=== PATIENT | male | born 1980 | race Hispanic/Latino ===

== ENCOUNTER → 2021-05-17 | Day surgery (SDC) | payer OTHER ==
[2021-05-08 13:25] LABS: ANION GAP 16.2 mmol/L (8-16); CALCIUM 9.9 mg/dL (8.4-10.2); CREATININE, SERUM 0.96 mg/dL (0.72-1.25); POTASSIUM 4.2 mmol/L (3.5-5.1)
[2021-05-16 08:40] LABS: ANION GAP 19.8 mmol/L (8-16); CALCIUM 9.4 mg/dL (8.4-10.2); CREATININE, SERUM 0.79 mg/dL (0.72-1.25); POTASSIUM 3.8 mmol/L (3.5-5.1)
[~2021-05-17] MED LIST: BUPIVACAINE 0.25% 30ML SDV ONE; FENTANYL CITRATE/PF 100MCG/2 ML INJ ONE; LIDOCAINE 1% W/EPINEPHRINE 20 ML VIAL ONE; METFORMIN HCL500 MG PO; ONDANSETRON HCL INJ 2MG/ML 2ML 2 MG/ML VIAL ONE; SODIUM CHLORIDE 0.9% 50ML 100 ML ONE
[2021-05-17 16:50] VITALS: BP 137/82
== END | disposition home or self-care (01) ==
LOC: OR 10:51
PROVIDERS: ATTEND Orthopaedic Surgery
DX: S83.512A Sprain of anterior cruciate ligament of left knee, initial encounter (principal); S83.212A Bucket-handle tear of medial meniscus, current injury, left knee, initial encounter; S83.272A Complex tear of lateral meniscus, current injury, left knee, initial encounter; M94.262 Chondromalacia, left knee; E11.9 Type 2 diabetes mellitus without complications; M65.862 Other synovitis and tenosynovitis, left lower leg; Z01.810 Encounter for preprocedural cardiovascular examination; Z01.812 Encounter for preprocedural laboratory examination; Z20.822 Contact with and (suspected) exposure to COVID-19
CPT/HCPCS: 29881; 29882; 29888; 36415 ×3; 80048 ×2; 82948; 93005; C1713 ×3; C1769; J0690; J2405; J3010; U0002 ×2; C1776

== ENCOUNTER 2021-05-19 12:32 | Emergency (ER) | payer SELFPAY ==
[~2021-05-19] VITALS: Ht 167.6 cm; Wt 68.0 kg
[~2021-05-19 12:32] MED LIST changes: -BUPIVACAINE 0.25% 30ML SDV ONE; -FENTANYL CITRATE/PF 100MCG/2 ML INJ ONE; -LIDOCAINE 1% W/EPINEPHRINE 20 ML VIAL ONE; -ONDANSETRON HCL INJ 2MG/ML 2ML 2 MG/ML VIAL ONE; -SODIUM CHLORIDE 0.9% 50ML 100 ML ONE
== END 2021-05-19 19:00 | disposition left against medical advice (07) ==
LOC: ER 13:02
DX: G89.18 Other acute postprocedural pain (principal)
CPT/HCPCS: 99282

== ENCOUNTER → 2022-04-11 | Day surgery (SDC) | payer OTHER ==
[2022-04-09 13:55] LABS: CALCIUM 9.1 mg/dL (8.4-10.2); CREATININE, SERUM 0.77 mg/dL (0.72-1.25)
[~2022-04-11] MED LIST changes: +ACETAMINOPHEN 1000 MG/100 ML IV ONE; +ATORVASTATIN CA20 MG PO; +BUPIVACAINE 0.25% 30ML SDV ONE; +DEXAMETHASONE SOD PHOS INJ 4 MG/ML SDV ONE; +FENTANYL CITRATE/PF 100MCG/2 ML INJ ONE; +GLIMEPIRIDE2 MG PO; +JARDIANCE25 MG PO; +KETOROLAC TROMETHAMINE 30 MG/ML VIAL ONE; +LIDOCAINE 2% /EPINEPHRINE 20 ML SDV INJ ONE; +LIDOCAINE HCL 2% LOCAL INJ 5 ML SDV VIAL INJ ONE; +ONDANSETRON HCL INJ 2MG/ML 2ML 2 MG/ML VIAL ONE; +POVIDONE IODINE 0.05% 0.05 % ML PO ONE; +PROPOFOL IV EMULSION 10 MG/ML 20 ML VIAL ONE; +SEVOFLURANE INHAL SOLN 250 ML PEN BTL ONE
[2022-04-11 10:35] VITALS: BP 123/89
== END | disposition home or self-care (01) ==
LOC: OR 08:00
PROVIDERS: ATTEND Orthopaedic Surgery
DX: S83.232A Complex tear of medial meniscus, current injury, left knee, initial encounter (principal); S83.282A Other tear of lateral meniscus, current injury, left knee, initial encounter; M22.42 Chondromalacia patellae, left knee; M67.52 Plica syndrome, left knee; E11.9 Type 2 diabetes mellitus without complications; X58.XXXA Exposure to other specified factors, initial encounter; Z01.810 Encounter for preprocedural cardiovascular examination; Z01.812 Encounter for preprocedural laboratory examination; Z20.822 Contact with and (suspected) exposure to COVID-19; Z79.84 Long term (current) use of oral hypoglycemic drugs; Z79.899 Other long term (current) drug therapy
CPT/HCPCS: 0223U; 29879; 29882; 36415; 80048; 93005; C1713; J0131; J0690; J1100; J1885; J2001 ×2; J2405; J2704; J3010